=== PATIENT | female | born 1960 | race Hispanic/Latino ===

== ENCOUNTER 2022-08-16 21:45 | Emergency (ER) | payer OTHER ==
[2022-08-16] MEDS ORDERED: IBUPROFEN 400 MG TAB PO ONE (22:30)
== END 2022-08-17 00:56 | disposition home or self-care (01) ==
LOC: ER 21:50
DX: S30.0XXA Contusion of lower back and pelvis, initial encounter (principal); W01.0XXA Fall on same level from slipping, tripping and stumbling without subsequent striking against object, initial encounter; Y93.01 Activity, walking, marching and hiking; Y92.89 Other specified places as the place of occurrence of the external cause
CPT/HCPCS: 72110; 72170; 99283